=== PATIENT | female | born 1965 | race Caucasian/White ===

== ENCOUNTER 2020-06-29 12:30 | Emergency (ER) | payer BC | END 2020-06-29 15:04 | LOC: JVIRT 12:30 | DX: U07.1 COVID-19 (principal); B34.9 Viral infection, unspecified | CPT/HCPCS: C9803; G2012-GT; U0003 ==

== ENCOUNTER 2020-07-07 11:45 | Emergency (ER) | payer BC | END 2020-07-07 12:21 | disposition home or self-care (01) | LOC: JVIRT 11:45 | DX: U07.1 COVID-19 (principal) | CPT/HCPCS: C9803; G2012-GT; U0003 ==